=== PATIENT | female | born 1985 | race Hispanic/Latino ===

== ENCOUNTER 2017-07-20 05:56 | Emergency (ER) | payer SELFPAY ==
[~2017-07-20] VITALS: Ht 160 cm; Wt 76.4 kg
[~2017-07-20 05:56] MED LIST: BENZONATATE100 MG PO; NICOTINE PATCH1 EAC1 TD; PREDNISONE10 M1 PO
[2017-07-20 06:27] LABS: HEMATOCRIT 36.8 % (36.0-46.0); MCH 27.3 PG (29.0-34.0); MCHC 32.9 G/DL (30.0-36.0); MCV 82.9 FL (83-99); MEAN PLAT.VOLUME 9.9 uM^3 (9.5-12.4); PLATELET COUNT 248 K/uL (156-360); RBC DIS.WIDTH-CV 13.7 % (11.8-14.6); RBC DIS.WIDTH-SD 41.6 % (39-53); RED BLOOD COUNT 4.44 M/uL (3.80-5.20); WHITE BLOOD COUNT 12.4 K/uL (4.1-10.2)
[2017-07-20 06:35] LABS: CHLORIDE 109 mEq/L (99-109); POTASSIUM 3.8 mEq/L (3.7-5.4); SODIUM 138 mEq/L (136-147)
[2017-07-20 06:37] LABS: GLUCOSE 123 mg/dL (70-99)
[2017-07-20 06:39] LABS: ANION GAP 14 MEQ/L (2-14); TOTAL BILIRUBIN 0.2 mg/dL (0.0-1.0)
[2017-07-20 06:41] LABS: ALKALINE PHOSPHATASE 81 IU/L (3-129); GFR ESTIMATE (CALCULATED) > 59 mL/min/
[2017-07-20 06:42] LABS: UREA NITROGEN (BUN) 7 mg/dL (9-23)
[2017-07-20 06:44] LABS: LIPASE 19 U/L (1.0-51.0)
[2017-07-20 07:31] LABS: ADD MIUA? YES; BILIRUBIN NEGATIVE; BLOOD LARGE; COLOR YELLOW ((YELLOW)); GLUCOSE (STRIP) NEGATIVE; KETONES 20; LEUKOCYTES NEGATIVE; NITRITE NEGATIVE; PROTEIN (STRIP) NEGATIVE; SPECIFIC GRAVITY 1.019 (1.000-1.030); UROBILINOGEN 0.2 MG/DL (0.2-1.0)
[2017-07-20 07:46] LABS: EPITHELIAL CELLS 1+ /HPF; MUCUS 1+ /LPF
[2017-07-20 07:47] LABS: BACTERIA NONE SEEN /HPF; CASTS NONE SEEN /LPF; CRYSTALS NONE SEEN; RED BLOOD CELLS TNTC /HPF (0-5); UCUL ADDED? YES; WHITE BLOOD CELLS RARE /HPF (0-5)
[2017-07-20] MEDS ORDERED: REGLAN5 MG PO (10:10)
[2017-07-20] MEDS ORDERED: ULTRAM50 MG PO (10:10)
[2017-07-20 10:47] VITALS: BP 125/80
== END 2017-07-20 11:00 | disposition home or self-care (01) ==
LOC: EME 05:56
PROVIDERS: Nurse Practitioner Family
DX: D25.9 Leiomyoma of uterus, unspecified (principal); F17.200 Nicotine dependence, unspecified, uncomplicated
CPT/HCPCS: 76856; 80053; 81003; 83690; 85027; 87086; 93975; 99281; 99285; J1885; J2405; J2765; J7030

== ENCOUNTER 2018-04-29 15:41 | Emergency (ER) | payer SELFPAY ==
[~2018-04-29] VITALS: Ht 160 cm; Wt 81.2 kg
[~2018-04-29 15:41] MED LIST changes: +REGLAN5 MG PO; +ULTRAM50 MG PO
[2018-04-29 16:46] LABS: HEMATOCRIT 34.4 % (36.0-46.0); HEMOGLOBIN 11.3 G/DL (11.9-15.5); MCH 25.6 PG (29.0-34.0); MCHC 32.8 G/DL (30.0-36.0); MCV 77.8 FL (83-99); PLATELET COUNT 239 K/uL (156-360); RBC DIS.WIDTH-SD 42.7 % (39-53); RED BLOOD COUNT 4.42 M/uL (3.80-5.20); WHITE BLOOD COUNT 17.1 K/uL (4.1-10.2)
[2018-04-29 16:58] LABS: ALBUMIN 4.1 g/dL (3.2-4.8); CHLORIDE 106 mEq/L (99-109); POTASSIUM 3.9 mEq/L (3.7-5.4); SODIUM 139 mEq/L (136-147)
[2018-04-29 17:00] LABS: GLUCOSE 101 mg/dL (70-99); TOTAL PROTEIN 7.1 g/dL (6.4-8.3)
[2018-04-29 17:02] LABS: TOTAL BILIRUBIN 0.5 mg/dL (0.0-1.0)
[2018-04-29 17:04] LABS: CREATININE 0.8 mg/dL (0.6-1.3); GFR ESTIMATE (CALCULATED) > 59 mL/min/
[2018-04-29 17:05] LABS: ALKALINE PHOSPHATASE 74 IU/L (3-129)
[2018-04-29 17:06] LABS: AST (GOT) 12 IU/L (2-34); UREA NITROGEN (BUN) 8 mg/dL (9-23)
[2018-04-29 17:07] LABS: SALICYLATE 6.1 MG/DL (15-30)
[2018-04-29 17:08] LABS: ACETAMINOPHEN (TYLENOL) < 10 mcg/mL (10-30); ALT (GPT) 14 IU/L (3-49)
[2018-04-29 17:13] LABS: QUANTITATIVE HCG < 4.0 MIU/ML
[2018-04-29 21:27] LABS: SOURCE SWAB
[2018-04-29 22:16] LABS: APPEARANCE CLEAR ((CLEAR)); BILIRUBIN NEGATIVE; BLOOD LARGE; COLOR STRAW ((YELLOW)); GLUCOSE (STRIP) NEGATIVE; KETONES 20; LEUKOCYTES NEGATIVE; NITRITE NEGATIVE; PROTEIN (STRIP) NEGATIVE; SPECIFIC GRAVITY 1.053 (1.000-1.030); UROBILINOGEN 0.2 MG/DL (0.2-1.0)
[2018-04-29 22:30] VITALS: BP 154/74
[2018-04-29 22:44] LABS: RED BLOOD CELLS TNTC /HPF (0-5); UCUL ADDED? YES
[2018-04-29] MEDS ORDERED: TORADOL10 MG PO (22:50)
[2018-04-29 22:58] LABS: CANDIDA DNA PROBE NEGATIVE; GARDNERELLA DNA PROBE NEGATIVE; TRICHOMONAS DNA PROBE NEGATIVE
== END 2018-04-29 23:34 | disposition home or self-care (01) ==
LOC: EME 15:41
PROVIDERS: Physician Assistant Medical
DX: N80.0 Endometriosis of uterus (principal); F17.200 Nicotine dependence, unspecified, uncomplicated
CPT/HCPCS: 74177; 76856; 80053; 81003; 84702; 85027; 87086; 87210; 87480; 87491; 87510; 87591; 87660; 99281; 99285; G0480; J1885; J2270; J2405; J2765; J7030